=== PATIENT | female | born 1995 | race Caucasian/White ===

== ENCOUNTER 2018-10-30 07:12 | Day surgery (SDC) | payer BC ==
[2018-10-29 14:03] VITALS: BMI 22.3
[~2018-10-30] VITALS: Ht 162.6 cm; Wt 59.9 kg
[2018-10-30] VITALS (13 sets, daily range): BP systolic 94–116; BP diastolic 49–63; PULSE 83–110; RESP 12–18; Ht 162.6 cm; Wt 59.9 kg
[~2018-10-30 07:12] MED LIST: CEFAZOLIN 2 GM/50 ML (PMX) 50 ML IVPB ONE; DESFLURANE 15 MIN ONE; NEOSTIGMINE 3 MG/3 ML SYRINGE ONE; PROPOFOL 200 MG INJ ONE; SOD CHLORIDE 0.9% 1,000 ML IV SCH
[2018-10-30] MEDS ORDERED: BUPIVACAINE 0.5%/EPI (SDV) 30 ML INJ ONE (08:49)
[2018-10-30] MEDS ORDERED: LIDOCAINE 1% (MPF) 30 ML INJ ONE (08:49)
--- NOTE | 2018-10-30 08:51 | PREAC ---
Date/Time of Note Date/Time of Note DATE: 10/30/18 TIME: 08:51 Anesthesia Eval and Record Evaluation Time Pre-Procedure Interview DATE: 10/30/18 TIME: 08:51 Age 23 Sex female NPO: 8 hrs Preoperative diagnosis back mass Planned procedure excision of back mass Past Medical History Past Medical History: None Surgery & Anesthesia Issues No known issue Meds Anticoagulation: No Beta Terry within 24 hr: No Reason Beta Terry not given: Pt. not on B-Terry No Active Prescriptions or Reported Meds Current Medications Sodium Chloride 1,000 ml @ 75 mls/hr [id number] IV ; Start 10/30/18 at 07:00; Stop 10/30/18 at 13:00 Meds reviewed: Yes Allergies Coded Allergies: No Known Allergy (Unverified , 10/29/18) Allergies Reviewed: Yes Labs/Studies Labs Reviewed: Reviewed by anesthesiologist test: Negative Pre-procedure Exam Last vitals Vital Signs Date Temp Pulse Resp B/P (MAP) Pulse Ox O2 O2 Flow FiO2 Time Delivery Rate 10/30/18 98.5 87 16 106/53 98 Room Air 08:23 (70) Airway: Adequate mouth opening, Adequate thyromental dist Mallampati: Mallampati II Teeth: Normal Lung: Normal Heart: Normal ASA Physical Status ASA physical status: 1 Emergency: None Planned Anesthetic General/MAC: ETT Pre-operative Attestations Prior to commencing anesthesia and surgery, the patient was re-evaluated, there was verification of: *The patient's identity *The results of appropriate recent lab work and preoperative vital signs *The above evaluation not changing prior to induction *Anesthetic plan, risk benefits, alternative and complications discussed with patient/family; questions answered; patient/family understands, accepts and wishes to proceed. FRANCIE WINN Oct 30, 2018 08:51
[2018-10-30] MEDS ORDERED: ALBUTEROL 0.083% (NEB) 2.5 MG/3 ML AMP HHN PRN (09:00)
[2018-10-30] MEDS ORDERED: DIPHENHYDRAMINE 50 MG INJ IV PRN (09:00)
[2018-10-30] MEDS ORDERED: METOCLOPRAMIDE 10 MG INJ IV PRN (09:00)
[2018-10-30] MEDS ORDERED: HYDROmorphONE 1 MG/5 ML IV SYRINGE IV PRN ×3 (09:00)
[2018-10-30] MEDS ORDERED: MEPERIDINE 25 MG INJ IV PRN (09:00)
[2018-10-30] MEDS ORDERED: ONDANSETRON 4 MG INJ IV PRN (09:00)
[2018-10-30] MEDS ORDERED: FENTAnyl 50 MCG/ML VIAL IV PRN ×3 (09:00)
[2018-10-30] MEDS ORDERED: FENTAnyl 50 MCG/ML VIAL ONE (09:06)
[2018-10-30] MEDS ORDERED: ONDANSETRON 4 MG INJ ONE (09:27)
[2018-10-30] MEDS ORDERED: ROCURONIUM 50 MG INJ ONE (09:27)
[2018-10-30] MEDS ORDERED: DEXAMETHASONE 4 MG/ML 5 ML INJ ONE (09:27)
[2018-10-30] MEDS ORDERED: CEFAZOLIN 1 GM INJ ONE (09:27)
[2018-10-30] MEDS ORDERED: LIDOCAINE 100 MG SYRINGE ONE (09:27)
[2018-10-30] MEDS ORDERED: SUCCINYLCHOLINE CHLORIDE 100 MG/5 ML SYG IV ONE (09:27)
[2018-10-30] MEDS ORDERED: GLYCOPYRROLATE 0.4 MG INJ ONE (10:01)
[2018-10-30] MEDS ORDERED: NEOSTIGMINE 3 MG/3 ML SYRINGE ONE (10:01)
--- NOTE | 2018-10-30 10:40 | SIPON ---
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 Newton-Jaffe drain Complications none ANTIONETTE GIBSON MD Oct 30, 2018 10:40
[2018-10-30] MEDS ORDERED: HYDR-3024 PO (10:52)
--- NOTE | 2018-10-30 10:56 | PDOCDIS ---
Discharge Instructions CONDITION [id number] Patient Condition: [id number] Good HOME CARE INSTRUCTIONS: [id number] Diet Instructions: [id number] Regular FOLLOW UP/APPOINTMENTS Follow-up Plan Return to see me in the office on 10 November thank you MT the bulb of the drain whenever full and renew the suction on the bulb ANTIONETTE GIBSON MD Oct 30, 2018 10:56
[2018-10-30] MEDS ORDERED: LACTATED RINGER'S 1,000 ML IV SCH (11:00)
[2018-10-30] MEDS ORDERED: ACETAMINOPHEN 325 MG TAB PO PRN (11:00)
--- NOTE | 2018-10-30 13:44 | OPR ---
DATE OF OPERATION: 10/30/2018 PREOPERATIVE DIAGNOSIS: Large lipoma in the lower back. POSTOPERATIVE DIAGNOSIS: Large lipoma in the lower back. INDICATION FOR SURGERY: Large lipoma in the lower back. OPERATION PERFORMED: Excision of large lipoma in the lower back. ANESTHESIA: General. SURGEON: Ileana Das MD ANESTHESIOLOGIST: Jagjit Rey MD DESCRIPTION OF PROCEDURE: With the patient under general anesthesia in the prone position, a transve rse incision was made over the mass, a long transverse incision about 8 cm. Incision was deepened to the subcutaneous tissue and then the mass was immediately encountered. It was an infiltrative large lipoma. It could not be enucleated and it was dissected from the subcutaneous tissue down to the fa scia. The large mass was excised. Following this, the wound was irrigated with saline. Local anest hesia was applied along the entire margin of the incision using an equal mixture of 1% lidocaine and 0.5% Marcaine with epinephrine. Following this, a drain was placed using a #10 Newton-Jaffe brought out through the right side and thereafter this, the drain was secured with 2-0 nylon. The wound its elf was closed with 4-0 Vicryl for the subcutaneous tissue and interrupted 2-0 nylon for the skin. A light dressing was then applied also around the drain. The patient was in satisfactory condition. Sponge and instrument counts were correct. The patient was turned on her back and sent to recovery r oom in satisfactory condition. Dictated By: ILEANA DAS MD OF/NTS Conf#: [id number] DID#: [id number]
--- NOTE | 2018-10-31 11:44 | PAC ---
Date/Time of Note Date/Time of Note DATE: 10/31/18 TIME: 11:44 Post-Anesthesia Notes Post-Anesthesia Note Last documented vital signs Vital Signs Date Temp Pulse Resp B/P (MAP) Pulse Ox O2 O2 Flow FiO2 Time Delivery Rate 10/30/18 98.1 83 18 105/63 100 Room Air 11:25 (77) 10/30/18 6.0 10:33 Activity: WNL Respiratory function: WNL Cardiovascular function: WNL Mental status: Baseline Pain reasonably controlled: Yes Hydration appropriate: Yes Nausea/Vomiting absent: Yes FRANCIE WINN Oct 31, 2018 11:44
== END 2018-10-30 12:25 | disposition home or self-care (01) ==
LOC: SDS 07:12
PROVIDERS: ATTEND Thoracic Surgery (Cardiothoracic Vascular Surgery)
DX: D17.1 Benign lipomatous neoplasm of skin and subcutaneous tissue of trunk (principal)
CPT/HCPCS: 21932; 84703; 88307; J0690; J1100; J2001; J2175; J2405; J2710; J3010; Z7512; Z7610

== ENCOUNTER 2018-11-14 17:27 | Emergency (ER) | payer BC ==
[~2018-11-14] VITALS: Ht 162.6 cm; Wt 58.7 kg
[~2018-11-14 17:27] MED LIST changes: -CEFAZOLIN 2 GM/50 ML (PMX) 50 ML IVPB ONE; -DESFLURANE 15 MIN ONE; +HYDR-3024 PO; -NEOSTIGMINE 3 MG/3 ML SYRINGE ONE; -PROPOFOL 200 MG INJ ONE; -SOD CHLORIDE 0.9% 1,000 ML IV SCH
[2018-11-14 17:29] VITALS: BP 112/64; PULSE 87; RESP 16; Ht 162.6 cm; Wt 58.7 kg
[2018-11-14] MEDS ORDERED: AMOX1TAB9 PO (18:45)
--- NOTE | 2018-11-14 18:47 | ERD ---
ER Documentation Chief Complaint Chief Complaint FOR POST OP WOUND CHECK ON BACK ROS All systems reviewed and are negative except as per history of present illness. Medications Home Meds Active Scripts Amoxicillin/Potassium Clav (Amox-Clav 500-125 mg Tablet) 500-125 mg Tab, 1 TAB PO BID for skin infection for 5 Days, #10 TAB Prov:JUAN CARVAJAL 11/14/18 Hydrocodone Bit-Acetaminophen* (Vicodin*) 5-300 Tab, 1 TAB PO Q4H PRN for PAIN for 10 Days, #60 TAB Prov:ANTIONETTE GIBSON MD 10/30/18 Allergies Allergies: Coded Allergies: No Known Allergy (Unverified , 10/29/18) PMhx/Soc History of Surgery: Yes (SPINAL LIPOMA REMOVED 12/2017) Anesthesia Reaction: Yes (MIGRAINE) Hx Neurological Disorder: No Hx Respiratory Disorders: No Hx Cardiac Disorders: No Hx Psychiatric Problems: No Hx Miscellaneous Medical Probl: No Hx Alcohol Use: No Hx Substance Use: No Hx Tobacco Use: No Smoking Status: Never smoker Physical Exam Vitals Vital Signs Date Temp Pulse Resp B/P (MAP) Pulse Ox O2 O2 Flow FiO2 Time Delivery Rate 11/14/18 98.8 87 16 112/64 99 17:29 (80) Physical Exam Const: No acute distress Head: Atraumatic Eyes: Normal Conjunctiva ENT: Normal External Ears, Nose and Mouth. Neck: Full range of motion. No meningismus. Resp: Clear to auscultation bilaterally Cardio: Regular rate and rhythm, no murmurs Abd: Soft, non tender, non distended. Normal bowel sounds Skin: No petechiae or rashes Back: No midline or flank tenderness Ext: No cyanosis, or edema Neur: Awake and alert Psych: Normal Mood and Affect Departure Diagnosis: Primary Impression: Wound infection Condition: Fair Patient Instructions: Wound Care Referrals: [facility] YOU HAVE RECEIVED A MEDICAL SCREENING EXAM AND THE RESULTS INDICATE THAT YOU DO NOT HAVE A CONDITION THAT REQUIRES URGENT TREATMENT IN THE EMERGENCY DEPARTMENT. FURTHER EVALUATION AND TREATMENT OF YOUR CONDITION CAN WAIT UNTIL YOU ARE SEEN IN YOUR DOCTORS OFFICE WITHIN THE NEXT 1-2 DAYS. IT IS YOUR RESPONSIBILITY TO MAKE AN APPOINTMENT FOR FOLOW-UP CARE. IF YOU HAVE A PRIMARY DOCTOR --you should call your primary doctor and schedule an appointment IF YOU DO NOT HAVE A PRIMARY DOCTOR YOU CAN CALL OUR PHYSICIAN REFERRAL HOTLINE AT IF YOU CAN NOT AFFORD TO SEE A PHYSICIAN YOU CAN CHOSE FROM THE FOLLOWING [facility] [address] [facility]. [facility] [address] [facility]. [facility] [phone] [facility]. [facility] [address] [facility]. [facility] [phone] [facility]. [facility] [address] Additional Instructions: Call your primary care doctor TOMORROW for an appointment during the next 1-2 days.See the doctor sooner or return here if your condition worsens before your appointment time. Follow up with general surgery JUAN CARVAJAL DO Nov 14, 2018 18:47
== END 2018-11-14 19:05 | disposition home or self-care (01) ==
LOC: FTE 17:27
DX: T81.49XA Infection following a procedure, other surgical site, initial encounter (principal); Y82.8 Other medical devices associated with adverse incidents
CPT/HCPCS: 99283

== ENCOUNTER 2018-11-27 10:21 | Emergency (ER) | payer BC ==
[~2018-11-27] VITALS: Ht 162.6 cm; Wt 59.0 kg
[~2018-11-27 10:21] MED LIST changes: +AMOX1TAB9 PO
[2018-11-27 10:29] VITALS: BP 116/80; PULSE 90; RESP 18; Ht 162.6 cm; Wt 59.0 kg
[2018-11-27] MEDS ORDERED: SULF1TAB31 PO (11:45)
[2018-11-27] MEDS ORDERED: CEPH-443 PO (11:45)
--- NOTE | 2018-11-27 15:28 | ERD ---
ER Documentation Chief Complaint Chief Complaint for wound check on site of lipoma removal on back x 1 month ago HPI 23-year-old female presenting for wound check. Patient had a lipoma removed from her back by Dr. Gaytan 1 month ago. Patient has had surgical complications and the wound dehisced. She was seen at Dr. Paulino's office and he stated that she needs to have the area granulate on its own and did not recommend any wound packing. Patient is concerned because there is purulence from the wound site with some erythema and pain. Denies fevers. ROS All systems reviewed and are negative except as per history of present illness. Medications Home Meds Active Scripts Sulfamethoxazole/Trimethoprim* (Bactrim Ds* Tablet) 1 Each Tablet, 1 TAB PO BID, #14 TAB Prov:NAUN COHEN PA-C 11/27/18 Cephalexin* (Keflex*) 500 Mg Capsule, 500 MG PO QID for 7 Days, CAP Prov:NAUN COHEN PA-C 11/27/18 Amoxicillin/Potassium Clav (Amox-Clav 500-125 mg Tablet) 500-125 mg Tab, 1 TAB PO BID for skin infection for 5 Days, #10 TAB Prov:JUAN CARVAJAL DO 11/14/18 Hydrocodone Bit-Acetaminophen* (Vicodin*) 5-300 Tab, 1 TAB PO Q4H PRN for PAIN for 10 Days, #60 TAB Prov:ANTIONETTE GIBSON MD 10/30/18 Allergies Allergies: Coded Allergies: No Known Allergy (Unverified , 10/29/18) PMhx/Soc History of Surgery: Yes (SPINAL LIPOMA REMOVED 12/2017) Anesthesia Reaction: Yes (MIGRAINE) Hx Neurological Disorder: No Hx Respiratory Disorders: No Hx Cardiac Disorders: No Hx Psychiatric Problems: No Hx Miscellaneous Medical Probl: No Hx Alcohol Use: No Hx Substance Use: No Hx Tobacco Use: No FmHx Family History: No diabetes, No coronary disease, No other Physical Exam Vitals Vital Signs Date Temp Pulse Resp B/P (MAP) Pulse Ox O2 O2 Flow FiO2 Time Delivery Rate 11/27/18 98.3 90 18 116/80 100 10:29 (92) Physical Exam GENERAL: The patient is well-appearing, well-nourished, in no acute distress CHEST: Clear to auscultation bilaterally. There are no rales, wheezes or rhonchi. HEART: Regular rate and rhythm. No murmurs, clicks, rubs or gallops. BACK: No midline or flank tenderness. SKIN: 2 x 1 cm dehisced wound over the mid thoracic spine. No bone exposed. Mild purulence and clear drainage noted. Mild surrounding induration. Procedures/MDM ER course: Iodoform packing placed in the wound site and pressure bandage applied. MDM: 23-year-old female presenting for wound check. Patient's wound appears to have concerning findings for early infection I will treat with antibiotics. Robin ortiz is recommended to follow-up with primary to obtain surgical consultation referral for second opinion. Patient is told if symptoms change or worsen to return sooner to the ER. Patient is recommended to return in 2 days if she needs another wound check. Patient is told symptoms change or worsen to return sooner. All questions answered at discharge Departure Diagnosis: Primary Impression: Encounter for wound re-check Condition: Stable Patient Instructions: Wound Care, Wound Packing Referrals: ELMO OSORIO MD [facility] YOU HAVE RECEIVED A MEDICAL SCREENING EXAM AND THE RESULTS INDICATE THAT YOU DO NOT HAVE A CONDITION THAT REQUIRES URGENT TREATMENT IN THE EMERGENCY DEPARTMENT. FURTHER EVALUATION AND TREATMENT OF YOUR CONDITION CAN WAIT UNTIL YOU ARE SEEN IN YOUR DOCTORS OFFICE WITHIN THE NEXT 1-2 DAYS. IT IS YOUR RESPONSIBILITY TO MAKE AN APPOINTMENT FOR FOLOW-UP CARE. IF YOU HAVE A PRIMARY DOCTOR --you should call your primary doctor and schedule an appointment IF YOU DO NOT HAVE A PRIMARY DOCTOR YOU CAN CALL OUR PHYSICIAN REFERRAL HOTLINE AT IF YOU CAN NOT AFFORD TO SEE A PHYSICIAN YOU CAN CHOSE FROM THE FOLLOWING [facility] [address] [facility] [address] [facility] [address] [facility]. [facility] [address] [facility]. [facility] [address] [facility]. [facility]. [address] Additional Instructions: FOLLOW UP WITH YOUR PRIMARY CARE PHYSICIAN TOMORROW.Return to this facility if you are not improving as expected. NAUN COHEN PA-C Nov 27, 2018 15:28
== END 2018-11-27 18:56 | disposition home or self-care (01) ==
LOC: FTE 10:21
DX: Z48.01 Encounter for change or removal of surgical wound dressing (principal)
CPT/HCPCS: 99283